=== PATIENT | female | born 1965 ===

== ENCOUNTER 2017-08-23 09:11 | Day surgery (SDC) | payer OTHER, SELFPAY ==
[2016-02-05 11:27] VITALS: BMI 27.8
--- NOTE | 2017-08-23 11:22 | CP.SDSHP ---
Same Day Surgery H & P - History Proposed Procedure: US guided FNA of right thyroid nodule Pre-Op Diagnosis: right thyroid nodule - Allergies Allergies: Allergies No Known Allergies Allergy (Verified 12/24/15 08:14) - Physical Exam Vital Signs: Vital Signs 08/23/17 09:17 Temperature 97.6 F Pulse Rate 58 L Respiratory 20 Rate Blood Pressure 121/76 O2 Sat by Pulse 99 Oximetry Mental Status: Alert & Oriented x3 - Impression Impression: Pt with a 1.6 cm right thyroid nodule near the isthmus. Plan US guided FNA. Pt. Evaluated Today:Candidate for Anesthesia & Procedure: No - Date & Time Date: 08/23/17 Time: 10:50 Short Stay Discharge - Short Stay Discharge Admitting Diagnosis/Reason for Visit: NONTOXIC SINGLE THYROID NODULE Disposition: HOME/ ROUTINE
--- NOTE | 2017-08-23 11:24 | PCM.SURG1 ---
Surgeon's Initial Post Op Note - Surgeon's Notes Surgeon: Chinmay John MD Clinical Liaison: NONE Type of Anesthesia: Local Pre-Operative Diagnosis: right thyroid nodule Operative Findings: 1.6 cm right thyroid nodule near isthmus. Post-Operative Diagnosis: right thyroid nodule Operation Performed: US guided FNA of right thyroid nodule Specimen/Specimens Removed: 25 g FNA x 5 passes Estimated Blood Loss: EBL {In ML}: 1 Blood Products Given: N/A Drains Used: No Drains Post-Op Condition: Good Date of Surgery/Procedure: 08/23/17 Time of Surgery/Procedure: 11:20
--- NOTE | 2017-08-23 11:51 | US ---
PROCEDURE: Date of Procedure: 08/23/2017 PROCEDURE: 1. Ultrasound guided FNA of right thyroid nodule, CPT 32447 2. Ultrasound guidance for FNA, 75682 Medications: 3cc 1% Lidocaine HISTORY: Enlarged right thyroid nodule. TECHNIQUE: Following informed consent and procedure time-out, a limited ultrasound patient's neck confirmed the presence of a 1.6 cm complex right thyroid nodule which is predominantly solid. After the patient's neck was prepped and draped in the usual sterile fashion, the skin was anesthetized with 1% lidocaine. Ultrasound-guided fine needle aspiration was then performed of the dominant right thyroid nodule. A total of 5 passes were made into the nodule with 25 gauge needle under ultrasound guidance. The FNA specimen was sent for routine pathology. Post biopsy ultrasound showed no hematoma. IMPRESSION: Ultrasound-guided FNA of the dominant right thyroid nodule.
[2017-08-23 12:06] VITALS: BP 124/72; PULSE 57; RESP 16; TEMP 97.9; O2SAT 100
== END 2017-08-23 12:01 | disposition home or self-care (01) ==
LOC: C.SPRAD 09:11
PROVIDERS: ATTEND Radiology Vascular & Interventional Radiology
DX: E04.1 Nontoxic single thyroid nodule (principal)

== ENCOUNTER 2018-04-22 07:02 | Outpatient (CLI) | payer SELFPAY | END 2018-04-22 07:03 | disposition home or self-care (01) | LOC: C.CATHLAB 07:02 → C.LAB 07:03 | DX: Z13.9 Encounter for screening, unspecified (principal) ==

== ENCOUNTER 2018-04-30 08:11 | Outpatient (CLI) | payer SELFPAY | END 2018-04-30 08:12 | disposition home or self-care (01) | LOC: C.LAB 08:11 | DX: Z12.11 Encounter for screening for malignant neoplasm of colon (principal) ==

== ENCOUNTER 2018-05-03 07:23 | Outpatient (CLI) | payer SELFPAY | END 2018-05-03 07:24 | disposition home or self-care (01) | LOC: C.LAB 07:23 | DX: Z12.11 Encounter for screening for malignant neoplasm of colon (principal) ==

== ENCOUNTER 2018-05-03 15:07 | Outpatient (CLI) | payer SELFPAY | END 2018-05-03 15:08 | disposition home or self-care (01) | LOC: C.USIC 15:07 | DX: N95.2 Postmenopausal atrophic vaginitis (principal) ==